=== PATIENT | male | born 2000 | race Caucasian/White ===

== ENCOUNTER 2021-12-19 15:44 | Observation (INO) ==
[2021-12-19] MEDS ORDERED: ACETAMINOPHEN 1000 MG/100 ML IV IV PRN (15:59)
[2021-12-19] MEDS ORDERED: HYDROmorphone INJ 0.5 MG/0.5 ML SYR IV PRN (15:59)
[2021-12-19] MEDS ORDERED: MoRPHine SULFATE 4 MG/ML 1 ML CARP\\VIAL IV PRN (15:59)
--- NOTE | 2021-12-19 17:18 | History & Physical Report ---
Date of Service December 19, 2021 Assessment & Plan (1) Mastoiditis of left side: Plan: Patient is a 21 year old male presenting with left ear and mastoid tenderness to palpation and hearing loss concerning of mastoiditis after failing a 21 day course of PO Augmentin. CT scan on 11/15 showed evidence of otitis media and mastoiditis. Due to failed course of antibiotics and worsening symptoms patient was admitted and will be started on empiric 3.375 gm (15 ml) Piperacillin/Tazobactam * Hold Vancomycin until MRSA swab results * Obtain CBC, procalcitonin, ESR, CRP * CT facial bones to visualize possible mastoiditis or osteomyelitis, pending results * Consider ENT/OMF consult if CT facial bones is positive for mastoiditis or osteomyelitis * Acetaminophen 1000mg q8h PRN for pain control. Currently 08/08 pain * Last food intake at 1:30pm today, last water intake around 3-4pm (2) Depression: Plan: follow up with PCP outpatient, was recently started on prozac 10mg (3) Tremor of both hands: Plan: follow up with PCP outpatient, consider neurology outpatient Admission and Anticipated Discharge Date Admission Date: December 19, 2021 History of Present Illness Chief Complaint: direct admission by PCP for worsening mastoiditis Primary Care Provider: Dr. Alli Juan Kye Ambriz is a 21 year old male with a PMH of depression and multiple episodes of childhood otitis media presenting with hearing loss and TTP over L mastoid area after completing a 21 day course of PO Augmentin outpatient for mastoiditis. He was referred as a direct admission by PCP Dr. Alli Juan from [facility]. Symptoms of infection started on 10/26/21 with sinus congestion and throat pain with negative strep test treated with OCT NyQuil and Mucinex. By 11/01/21 he experienced yellow and slighly bloody discharge from his left ear, pressure in his ear and left sided headache, and complete deafness in his left ear for 2 weeks. He was started on hydrocortisone/neomycin/polymyxin topical but had a slight worsening of symptoms but resolution of purulent drainage. On 12/08 he was prescribed a week of Augmentin PO 875 mg-125 mg for ear pain and pressure, which was extended and additional 2 weeks for a total of 21 days of PO Augmentin. He had 50-70% improvement in hearing with antibiotics and mostly reduced pressure in left ear and head, with some remaining mastoid and jaw tenderness. CT temporal bone on 12/15 showed otitis media and mastoiditis. He also had mild Covid-19 2-3 weeks ago with lingering fatigue but no cough or SOB. He has currently been off PO antibiotics for 2 weeks and has 1/10 pain around his ear, increased pressure sensation, 50% hearing loss, and increased pain on palpation around his left ear, mastoid and angle of the mandible. He is not febrile. He has not had any recent dental procedures or cleaning in the last 5 months, last dental visit in Jun 2021. He is not a swimmer and has not been in a pool in months. 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 This has not been verified by his PCP. Allergies Allergy/AdvReac Type Severity Reaction Status Date / Time No Known Allergies Allergy Unverified 09/13/13 16:28 Home Medications Medication Instructions Recorded Confirmed Type fluoxetine 10 mg capsule 10 mg 12/19/21 History Past Med/Surg History Surgical History (Updated 12/19/21 @ 18:22 by Mehnaz Pantoja) [place] teeth removed at 16 y/o Family History (Updated 12/19/21 @ 17:22 by Parminder Torres MD) Other Cancer Social History (Updated 12/19/21 @ 17:26 by Parminder Torres MD) Smoking Status: Current every day smoker Tobacco Type: E-cigarettes / Vaping Do You Dip or Chew Tobacco: No; Hx Alcohol Use: Yes Alcohol type: hard liquor Alcohol type Comment: Up until 06/2021, patient reports drinking "half a handle a day"; Alcohol Intake Frequency: 2-3 x/Week Alcohol Intake Frequency Comment: Now only on weekends; 4- 6 drinks Hx Substance Use: Yes Prescribed Medications: Marijuana Last Used Substance: Days (ago) Substance Use Type Other:: Marijuana: Shrooms: several months ago Preferred Language: Libyan Office Communication Professor Required: No Beliefs That Will Affect Care: None Current Living Situation: Other Current Living Situation Comment: rents with 2 roomates current occupational status: student current occupation: just graduated Feels Safe at Home: Yes Immunizations: childhood immunizations up to date Review of Systems Constitutional: afebrile, slightly fatigued from recent covid illness Ear, Nose, Mouth, Throat: no sore throat, slight nasal congestion, 1/10 pain around left ear, pressure sensation in left ear Respiratory: no cough, no SOB Cardiovascular: Additional Comments: no chest pain or palpitations Gastrointestinal: no GI concerns Neurologic: no headaches Allergy / Immunological: seasonal allergies - rhinorrhea Physical Exam Constitutional: appears stated age, comfortable in no acute distress ENMT: TM bilaterally with good cone of light and without effusion, bulging or perforation, no erythema in outer ear or canal. Pain to palpation on left mastoid process, preauricular area, styloid process, and angle of the mandible. Robin test localizes to left ear, Rinne test: left ear bone conduction greater than air conduction, right ear air conduction is greater than bone conduction. No tonsillar swelling or cobblestoning. Respiratory: normal respiratory effort, lungs clear to auscultation bilaterall y Cardiovascular: RRR no MRG Neurologic: CN 2-12 intact, no focal deficits Code Status & VTE Plan VTE Prophylaxis Plan VTE Prophylaxis will be ordered: No Supervising Physician Co-Signing Physician Notes I personally examined the patient and verified all loja points of history and exam, discussed case, and agree with decision making with Caitlyn Pantoja MS4 ear, jaw pain. gets somewhat better on long courses PO abx then worsens again. after failing most recent outpt Rx, direct admitted for further care vitals noted nad heent nc at mmm breathing unlabored no accessory muscles good effort skin no rashes no pallor or icterus mastoiditis - MRSA nares, vanco if (+), zosyn otherwise as well. image ear/mastoid and (since radiating pain) jaw. anticipate need for ENT vs maxilofacial depending on results of imaging otherwise as above
[2021-12-19 17:36] LABS: Basophils # (auto) 0.04 K/uL (0-0.2); Basophils % (auto) 0.6 %; Eosinophils # (auto) 0.14 K/uL (0-0.5); Hematocrit (blood only) 42.3 % (42-52); Hemoglobin 14.9 g/dL (14.0-18.0); Immature Granulocytes # (auto) 0.02 K/uL (0.00-0.02); Immature Granulocytes % (auto) 0.3 %; Lymphocytes # (auto) 1.87 K/uL (1.2-3.4); Lymphocytes % (auto) 27.3 %; Mean Corpuscular Hemoglobin 31.2 pg (25-34); Mean Corpuscular Hgb Conc 35.2 g/dL (32-36); Mean Corpuscular Volume 88.5 fL (80-100); Mean Platelet Volume 9.8 fL (7.4-10.4); Monocytes # (auto) 0.84 K/uL (0.11-0.59); Monocytes % (auto) 12.3 %; Neutrophils # (auto) 3.93 K/uL (1.4-6.5); Neutrophils % (auto) 57.5 %; Platelet Count 331 K/uL (130-400); RDW Coefficient of Variation 13.2 % (11.5-14.5); RDW Standard Deviation 42.7 fL (36.4-46.3); Red Blood Count 4.78 M/uL (4.7-6.1); White Blood Count 6.84 K/uL (4.8-10.8)
[2021-12-19] MEDS: Patient's HEIGHT &/or WEIGHT Needed SCH ×2 (17:38→19:27)
[2021-12-19] MEDS ORDERED: PIPERACILL/TAZOBAC CONSULT ACTIVE PRN (18:10)
[2021-12-19] MEDS ORDERED: Nursing to Pharmacy Communication SCH (18:15)
[2021-12-19 18:16] LABS: Alanine Aminotransferase 96 U/L (7-52); Albumin Globulin Ratio 1.4 (0.9-2); Alkaline Phosphatase 74 U/L (34-104); Anion Gap 9 (3-11); Aspartate Aminotransferase 39 U/L (13-39); BUN Creatinine Ratio 15.2 (10-20); Bilirubin,Total 0.7 mg/dl (0.2-1.0); Blood Urea Nitrogen 15 mg/dl (6-23); C Reactive Protein < 0.50 mg/dl (0-0.5); Calcium 9.9 mg/dl (8.5-10.1); Carbon Dioxide 27 mmol/L (21-32); Chloride 101 mmol/L (98-107); Creatinine Clr Calc Pharmacy 139.9 ml/min; Est GFR (African American) 124.8 ml/min; Est GFR (Non-African American) 107.7 ml/min; Globulin 3.7 gm/dl (2.5-4.0); Glucose 83 mg/dl (70-99(Fasting)); Potassium 3.9 mmol/L (3.5-5.1); Sodium 137 mmol/L (136-145); Total Protein 8.7 gm/dl (6.0-8.3)
--- NOTE | 2021-12-19 18:18 | Billing Data ---
Date of Service December 19, 2021 Coding Level of Care Code 97257 Subseq Obs Care Lvl 3
[2021-12-19] MEDS ORDERED: OPTIRAY 320 100ml IV ONE (19:55)
[2021-12-19] MEDS ORDERED: PIPERACILLIN/TAZOBACTAM 3.375 GM in DEXTROSE 5% 100 ML IV ONE (20:00)
--- NOTE | 2021-12-19 20:27 | CT Scan Report ---
FACIAL BONE CT WITH CONTRAST CLINICAL HISTORY: recent dx L mastoiditis; recurrent pain, +in L jaw COMPARISON STUDY: Temporal bone CT November 15, 2021. TECHNIQUE: Facial bone CT was performed following intravenous injection of 94 cc of Optiray 320 IV. S agittal and coronal reconstructions were viewed. Automated exposure control was utilized for the stud y. A dose lowering technique was utilized adhering to the principles of ALARA. FINDINGS: Visualized portions of the intracranial contents are unremarkable by CT. Trace fluid within the right mastoid air cells is noted. The left mastoid air cells are nearly completely opacified. Ae ration has slightly improved since prior CT. There is also extensive fluid within the left middle ear , adjacent to the ossicles. No bony destruction is identified by CT. There is no fluid collection adj acent to the left external auditory canal to suggest an abscess. Findings are similar to prior CT of November 15, 2021. Major vasculature of the upper neck is patent. Orbits are unremarkable. Minimal mucos al thickening of the left maxillary sinus is present. IMPRESSION: Near-complete opacification of the left mastoid air cells with fluid within the left mid dle ear. Minimal improvement in left mastoid aeration since prior scan. The findings represent persis tent or recurrent left otomastoiditis. No bony destruction by CT. ACT 112: Negative or not required by law. Electronically signed by: Brett Ferro M.D. 12/19/2021 8:25 PM
[2021-12-19] MEDS ORDERED: SODIUM CHLORIDE 0.9% 500 ML IV SCH (20:45)
[2021-12-20] MEDS: PIPERACILLIN/TAZOBACTAM 3.375 GM in DEXTROSE 5% 100 ML IV SCH ×3 (01:18→17:34)
[2021-12-20 07:45] LABS: Basophils # (auto) 0.03 K/uL (0-0.2); Basophils % (auto) 0.5 %; Eosinophils # (auto) 0.17 K/uL (0-0.5); Hemoglobin 15.2 g/dL (14.0-18.0); Immature Granulocytes # (auto) 0.01 K/uL (0.00-0.02); Immature Granulocytes % (auto) 0.2 %; Lymphocytes # (auto) 1.88 K/uL (1.2-3.4); Lymphocytes % (auto) 33.7 %; Mean Corpuscular Hemoglobin 31.1 pg (25-34); Mean Corpuscular Hgb Conc 35.3 g/dL (32-36); Mean Corpuscular Volume 88.1 fL (80-100); Mean Platelet Volume 9.7 fL (7.4-10.4); Monocytes # (auto) 0.71 K/uL (0.11-0.59); Monocytes % (auto) 12.7 %; Neutrophils # (auto) 2.78 K/uL (1.4-6.5); Neutrophils % (auto) 49.9 %; Platelet Count 277 K/uL (130-400); RDW Standard Deviation 41.9 fL (36.4-46.3); Red Blood Count 4.88 M/uL (4.7-6.1); White Blood Count 5.58 K/uL (4.8-10.8)
[2021-12-20 08:07] LABS: Albumin Globulin Ratio 1.3 (0.9-2); Albumin Level 4.5 gm/dl (3.4-5.0); BUN Creatinine Ratio 10.8 (10-20); Bilirubin,Total 1.1 mg/dl (0.2-1.0); Calcium 9.7 mg/dl (8.5-10.1); Creatinine Clr Calc Pharmacy 124.8 ml/min; Est GFR (African American) 108.7 ml/min; Est GFR (Non-African American) 93.8 ml/min; Globulin 3.4 gm/dl (2.5-4.0); Potassium 4.3 mmol/L (3.5-5.1); Total Protein 7.9 gm/dl (6.0-8.3)
--- NOTE | 2021-12-20 09:25 | Hospitalist Progress Note ---
Date of Service December 20, 2021 Assessment & Plan (1) Mastoiditis of left side: Plan: Patient is a 21 year old male presenting with left ear and mastoid tenderness to palpation and hearing loss concerning of mastoiditis after failing a 21 day course of PO Augmentin. CT scan on 11/15 showed evidence of otitis media and mastoiditis. Mastoiditis Due to failed course of antibiotics and worsening symptoms patient was admitted and is on day 2 of Piperacillin/Tazobactam * MRSA swab results negative, no need to switch to Vancomycin at this time * CT facial bones: consistent with persistent otomastoiditis, similar to CT from 11/15. No osteonecrosis or bony destruction noted. No mandibular/TMJ involvement noted. * Appreciate ENT consultation for mastoiditis * Acetaminophen 1000mg q8h PRN for pain control. Currently 08/08 pain * CBC within normal limits except for slight absolute monocytosis (0.84 on 12/19, 0.71 on 12/20). * ESR 16, CRP <0.5, procalcitonin <0.05 * NPO until ENT consultation in case of surgical management DVT prophylaxis: ambulate ad mayte, potential for ENT surgery FEN/GI: NPO Code Status: Full Code (2) Transaminitis: Plan: ALT slightly elevated at 96, up from 88 yesterday. AST 39, 37 yesterday. Total bilirubin 1.1, 0.7 yesterday. Possible mild viral hepatitis due to recent covid infection in combination with mild absolute monocytosis. DDx extrahepatic cholestasis, minor fatty liver though unlikely without additional symptoms. Trend CMP tomorrow and consider liver US or outpatient follow-up with GI if ALT still elevated (3) Diarrhea: Plan: Watery diarrhea likely due to initiation of antibiotics yesterday. Previous 21 day course of Augmentin ending 2 weeks prior to admission. No other risk factors for c. diff. Will watch for increased frequency or symptoms concerning for c. diff. (4) Depression: Plan: follow up with PCP outpatient, was recently started on prozac 10mg (5) Tremor of both hands: Plan: follow up with PCP outpatient, consider neurology outpatient Admission and Anticipated Discharge Date Admission Date: December 19, 2021 Supervising Physician Co-Signing Physician Notes I personally examined the patient and verified all loja points of history and exam, discussed case, and agree with decision making with Caitlyn Pantoja MS4 sleeping both times i saw him today. awaiting ENT input - case d/w ENT by R2 physician Dr Torres vitals noted nad breathing unlabored no pallor or icterus mastoiditis / otitis - recurrent/refractory. MRSA nares negative. continue zosyn. await ENT input. otherwise as above Subjective No acute events overnight. Today he feels the same as yesterday, with same 1/10 pain and 50% hearing loss in left ear. No headache, chest pain, SOB, fever or myalgias today. He does note he had 2 watery bowel movements since yesterday without blood. Review of Systems Constitutional: no fever or myalgias Ear, Nose, Mouth, Throat: L ear: 50% subjective hearing loss compared to right ear, 1/10 pain, pressure sensation Respiratory: no cough or SOB Cardiovascular: Additional Comments: no chest pain or palpitations Gastrointestinal: 2 episodes of watery diarrhea since yesterday, no blood. No nausea or vomiting Genitourinary: no dysuria Neurologic: no headache, no issues with balance or gait when walking, no vertigo Physical Exam Constitutional: comfortable, in no acute distress ENMT: pain to palpation in LEFT mastoid, styloid process (slightly decreased since yesterday), pre-auricular area, and angle of the mandible. No swelling of cobblestoning of the throat Neck: No lymphadenopathy appreciated Respiratory: normal respiratory effort, clear to auscultation bilaterally Cardiovascular: RRR no MRG. No lower extremity edema Gastrointestinal (Abdomen): active bowel sounds, no tenderness to palpation Results & Data Results & Data ([facility]) Vital Signs (Past 12 Hours) Vital Signs Temp Pulse Resp BP Pulse Ox 12/20/21 07:43 36.5 C 64 18 149/78 H 97 12/19/21 22:37 36.7 C 75 16 141/83 H 97 Laboratory Results Laboratory Results - last 48 hr 12/19/21 12/19/21 12/19/21 17:05 17:05 17:05 WBC 6.84 RBC 4.78 Hgb 14.9 Hct 42.3 MCV 88.5 MCH 31.2 MCHC 35.2 RDW Std Deviation 42.7 RDW Coeff of Rosalio 13.2 Plt Count 331 MPV 9.8 Immature Gran % (Auto) 0.3 Neut % (Auto) 57.5 Lymph % (Auto) 27.3 [place] % (Auto) 12.3 Eos % (Auto) 2.0 Baso % (Auto) 0.6 Neut # (Auto) 3.93 Lymph # (Auto) 1.87 [place] # (Auto) 0.84 H Eos # (Auto) 0.14 Baso # (Auto) 0.04 Immature Gran # (Auto) 0.02 ESR 16 H Sodium 137 Potassium 3.9 Chloride 101 Carbon Dioxide 27 Anion Gap 9 BUN 15 Creatinine 0.99 Est Cr Clr Drug Dosing 139.9 Est GFR ( Amer) 124.8 Est GFR (Non-Af Amer) 107.7 BUN/Creatinine Ratio 15.2 Glucose 83 Calcium 9.9 Total Bilirubin 0.7 AST 39 ALT 96 H Alkaline Phosphatase 74 C-Reactive Protein < 0.50 Total Protein 8.7 H Albumin 5.0 Globulin 3.7 Albumin/Globulin Ratio 1.4 Procalcitonin Nasal Screen MRSA (PCR) 12/19/21 12/19/21 12/20/21 17:05 Unknown 07:26 WBC 5.58 RBC 4.88 Hgb 15.2 Hct 43.0 MCV 88.1 MCH 31.1 MCHC 35.3 RDW Std Deviation 41.9 RDW Coeff of Rosalio 13.0 Plt Count 277 MPV 9.7 Immature Gran % (Auto) 0.2 Neut % (Auto) 49.9 Lymph % (Auto) 33.7 [place] % (Auto) 12.7 Eos % (Auto) 3.0 Baso % (Auto) 0.5 Neut # (Auto) 2.78 Lymph # (Auto) 1.88 [place] # (Auto) 0.71 H Eos # (Auto) 0.17 Baso # (Auto) 0.03 Immature Gran # (Auto) 0.01 ESR Sodium Potassium Chloride Carbon Dioxide Anion Gap BUN Creatinine Est Cr Clr Drug Dosing Est GFR ( Amer) Est GFR (Non-Af Amer) BUN/Creatinine Ratio Glucose Calcium Total Bilirubin AST ALT Alkaline Phosphatase C-Reactive Protein Total Protein Albumin Globulin Albumin/Globulin Ratio Procalcitonin < 0.05 Nasal Screen MRSA (PCR) Negative 12/20/21 07:26 WBC RBC Hgb Hct MCV MCH MCHC RDW Std Deviation RDW Coeff of Rosalio Plt Count MPV Immature Gran % (Auto) Neut % (Auto) Lymph % (Auto) [place] % (Auto) Eos % (Auto) Baso % (Auto) Neut # (Auto) Lymph # (Auto) [place] # (Auto) Eos # (Auto) Baso # (Auto) Immature Gran # (Auto) ESR Sodium 138 Potassium 4.3 Chloride 103 Carbon Dioxide 29 Anion Gap 6 BUN 12 Creatinine 1.11 Est Cr Clr Drug Dosing 124.8 Est GFR ( Amer) 108.7 Est GFR (Non-Af Amer) 93.8 BUN/Creatinine Ratio 10.8 Glucose 88 Calcium 9.7 Total Bilirubin 1.1 H D AST 37 ALT 88 H Alkaline Phosphatase 66 C-Reactive Protein Total Protein 7.9 Albumin 4.5 Globulin 3.4 Albumin/Globulin Ratio 1.3 Procalcitonin Nasal Screen MRSA (PCR) Diagnostic Findings FACIAL BONE CT WITH CONTRAST CLINICAL HISTORY: recent dx L mastoiditis; recurrent pain, +in L jaw COMPARISON STUDY: Temporal bone CT November 15, 2021. TECHNIQUE: Facial bone CT was performed following intravenous injection of 94 cc of Optiray 320 IV. Sagittal and coronal reconstructions were viewed. Automated exposure control was utilized for the study. A dose lowering technique was utilized adhering to the principles of ALARA. FINDINGS: Visualized portions of the intracranial contents are unremarkable by CT. Trace fluid within the right mastoid air cells is noted. The left mastoid air cells are nearly completely opacified. Aeration has slightly improved since prior CT. There is also extensive fluid within the left middle ear, adjacent to the ossicles. No bony destruction is identified by CT. There is no fluid collection adjacent to the left external auditory canal to suggest an abscess. Findings are similar to prior CT of November 15, 2021. Major vasculature of the upper neck is patent. Orbits are unremarkable. Minimal mucosal thickening of the left maxillary sinus is present. IMPRESSION: Near-complete opacification of the left mastoid air cells with fluid within the left middle ear. Minimal improvement in left mastoid aeration since prior scan. The findings represent persistent or recurrent left otomastoiditis. No bony destruction by CT.
--- NOTE | 2021-12-20 21:49 | ENT Consultation ---
Date of Consultation December 20, 2021 Assessment & Plan (1) Serous otitis media: My Exam Findings and My review of the Temporal Bone CT - shows a HYPOpneumatized LEFT Mastoid WITHOUT any bone destruction. The patient is AFEBRILE and NORMAL White Blood Count - WITHOUT any External Ear swelling or cellulitis and NO mastoid tenderness. Tuning forks indicate INTACT Sensorineural Hearing in the LEFT ear and patient admits to subjective NORMAL Right ear hearing. Given his History of a recent past acute URI with LEFT Ear infection - the patient responded as hoped to his Outpatient community medical treatments and he currently has a resolving SEROUS Otitis Media -WITHOUT Infection - with Eustachian Tube Dysfunction. The Hypopneumatized mastoid is indicative of past middle ear function as a child and this ear takes a little longer to Clear a Middle ear / Mastoid Effusion. Studies show that 50% of such ears will clear in about six (6) weeks and 90% clear in about twelve (12) weeks WITHOUT any additional therapy. My recommendations would be: 1) to NOT give any additional antibiotics either IV or PO. 2) Have the patient continue as an outpatient with FLONASE nasal steroid spray for six (6) weeks Daily for improved eustachian tube function. 3) MUCINEX or GAUIFENISEN 600 mg BID for three weeks as a mucolytic agent to help clear the Serous Effusion. 4) Use of CLARITIN-D for 2 - 3 weeks as an antihistamine and decongestant for improved eustachian tube function. 5) An AUDIOGRAM to assess and document the actual state of his hearing rather than rely on subjective quantification, and follow-up on the findings. This is NOT acute mastoiditis. Present on Admission?: Yes (2) Eustachian tube dysfunction: My Exam Findings and My review of the Temporal Bone CT - shows a HYPOpneumatized LEFT Mastoid WITHOUT any bone destruction. The patient is AFEBRILE and NORMAL White Blood Count - WITHOUT any External Ear swelling or cellulitis and NO mastoid tenderness. Tuning forks indicate INTACT Sen sorineural Hearing in the LEFT ear and patient admits to subjective NORMAL Right ear hearing. Given his History of a recent past acute URI with LEFT Ear infection - the patient responded as hoped to his Outpatient community medical treatments and he currently has a resolving SEROUS Otitis Media -WITHOUT Infection - with Eustachian Tube Dysfunction. The Hypopneumatized mastoid is indicative of past middle ear function as a child and this ear takes a little longer to Clear a Middle ear / Mastoid Effusion. Studies show that 50% of such ears will clear in about six (6) weeks and 90% clear in about twelve (12) weeks WITHOUT any additional therapy. My recommendations would be: 1) to NOT give any additional antibiotics either IV or PO. 2) Have the patient continue as an outpatient with FLONASE nasal steroid spray for six (6) weeks Daily for improved eustachian tube function. 3) MUCINEX or GAUIFENISEN 600 mg BID for three weeks as a mucolytic agent to help clear the Serous Effusion. 4) Use of CLARITIN-D for 2 - 3 weeks as an antihistamine and decongestant for improved eustachian tube function. 5) An AUDIOGRAM to assess and document the actual state of his hearing rather than rely on subjective quantification, and follow-up on the findings. This is NOT acute Mastoiditis and does not require any surgical intervention. Present on Admission?: Yes History of Present Illness Reason for Consultation: Rule out Acute Mastoiditis Requesting Physician: Parminder Torres MD Attending Physician: Parminder Ji DO History of Present Illness Kye Ambriz is a 21 year old male with an onset of LEFT Ear - Middle ear infection / Otalgia that started in OCTOBER 2021. He went on a trip to [place] for spring and developed Symptoms of infection started on 10/26/21 with sinus congestion and throat pain with negative strep test treated with OCT NyQuil and Mucinex. By 11/01/21 (OCTOBER) he experienced yellow discharge from his LEFT ear, pressure in his LEFT ear and LEFT sided headache, and noted difficulty hearing in his LEFT ear for 2 weeks. He had a TEMPORAL BONE CT SCAN done 15 NOVEMBER 2021 which showed fluid in the LEFT middle ear space and in the hypo- pneumatized LEFT mastoid. There was NO bone destruction. He was started on TOPICAL hydrocortisone/neomycin/polymyxin EAR DROPS then in OCTOBER - but had a slight worsening of symptoms but resolution of purulent drainage. On 08 NOVEMBER 2021 - he was prescribed a week of Augmentin PO 875 mg-125 mg for ear pain and pressure, which noted SOME IMPROVEMENT and the AUGMENTIN was extended an additional 2 weeks for a total of 21 days of PO AUGMENTIN. Patient states that he improvement in his LEFT ear symptoms and his LEFT ear hearing was restored. With antibiotics and mostly REDUCED pressure in LEFT ear and head, he was improved, with some remaining MILD mastoid and jaw tenderness. He was OFF any antibiotics and in this past week - noting his LEFT hearing to start to deminish and feel a "Fullness" of the LEFT ear. He was NOT having the pain or discomfort of the LEFT ear as he had though in OCTOBER 2021. Around this time he notes he also had mild Covid-19 2-3 weeks ago with lingering fatigue but no cough or SOB. He was currently been off PO antibiotics for 2 weeks and has 1/10 pain around his ear, but started to note an increased pressure sensation in the LEFT ear, and he estimated he had about 50% hearing loss, (HOWEVER - the HEARING LOSS ESTIMATES are patient subjective - NO AUDIOGRAM was done.) In this scenario - the patient returned to PRIMARY CARE on 19 DEC 2021 for a Follow-Up visit. He did NOT have any Fever, did NOT have any LEFT Ear Pain and did NOT have and tenderness of the Mastoid - but the Primary Care Exam of the LEFT ear, and his report of decreased LEFT ear hearing - the patient was made a Direct Admit by PCP Dr. Alli Juan from [facility]. A TEMPORAL BONE CT Scan was obtained 19 DEC 2021 as part of his Direct Admission. Patient is a recent graduate of [employer] (NOVEMBER 2021). Patient has a past history of many ear infections during childhood - but NO ear surgeries, NO tympanostomy tubes. Patient has history of Depression - on Prozac. Allergies Allergy/AdvReac Type Severity Reaction Status Date / Time No Known Allergies Allergy Unverified 09/13/13 16:28 Home Medications Medication Instructions Recorded Confirmed Type fluoxetine 10 mg capsule 10 mg 12/19/21 History Patient History Surgical History [place] teeth removed at 16 y/o Family History Other Cancer Social History Smoking Status: Current every day smoker Tobacco Type: E-cigarettes / Vaping Do You Dip or Chew Tobacco: No; Hx Alcohol Use: Yes Alcohol type: hard liquor Alcohol type Comment: Up until 06/2021, patient reports drinking "half a handle a day"; Alcohol Intake Frequency: 2-3 x/Week Alcohol Intake Frequency Comment: Now only on weekends; 4- 6 drinks Hx Substance Use: Yes Prescribed Medications: Marijuana Last Used Substance: Days (ago) Substance Use Type Other:: Marijuana: Shrooms: several months ago Preferred Language: Macedonian Nonprofit Manager Required: No Beliefs That Will Affect Care: None Current Living Situation: Other Current Living Situation Comment: rents with 2 roomates current occupational status: student current occupation: just graduated Feels Safe at Home: Yes Assistive Devices: None Review of Systems Review of Systems: Unremarkable. Constitutional: as per Subjective / HPI Recent College Graduate. Use of Alcohol, marijuana, hallucinogenic mushrooms as noted above. Eyes: no diplopia, no decreased night vision, no loss of peripheral vision and no problem reported Ear, Nose, Mouth, Throat: no ear pain, no ear discharge, no ear trauma, no tinnitus, no hyperacusis, no dizziness, no nasal discharge, no sinus pain/press ure, no sore throat and no dysphagia Respiratory: no dyspnea on exertion and no hemoptysis Cardiovascular: no palpitations and no syncope Gastrointestinal: no nausea, no constipation and no problem reported Genitourinary: no problem reported Musculoskeletal: no problem reported Integumentary: no problem reported Neurologic: no problem reported Psychiatric: as per Subjective / HPI and + depression Physical Exam Constitutional: WD/WN, vitals as above Eyes: PERRL, conjunctivae normal, anicteric sclerae ENMT: external ear and nose normal, oropharynx normal NO facial weakness. NO facial tenderness. NO mastoid tenderness on palpation. EAR: NORMAL External ear. CLEAN External Auditory Canals. BOTH tympanic membranes intact, NO retraction, NO bulging, NO erythema. NORMAL Light reflex bilaterally. NO signs of middle ear effusion. Tuning Fork Test - Rinne Normal. Robin Lateralizes to the LEFT. NOSE: Clear & Patent airways. NO polyps, NO mucopus. MOUTH: Health Dentition. Floor of mouth Clear. Tongue NORMAL. Uvulat Midline. Soft palate NORMAL. Tonsils +1 in Size - symmetrical NORMAL OROPHARYNX - CLEAR - NO lesions. Neck: trachea midline, no thyromegaly NO adenopathy. NO mastoid tenderness. NO swelling. Respiratory: normal respiratory effort, lungs clear to auscultation Cardiovascular: RRR, no murmur, no edema Results & Data ([facility]) Vital Signs (Past 12 Hours) Vital Signs Temp Pulse Resp BP Pulse Ox 12/20/21 15:04 36.7 C 76 18 123/74 95 Laboratory Results WBC = 6.8 on admission... 5.6 today and NO shift. Hgb / Hct = 15.2 / 43% Diagnostic Findings TEMPORAL BONE CT SCAN: (19 DEC 2021) REPORT: "FINDINGS: Visualized portions of the intracranial contents are unremarkable by CT. Trace fluid within the right mastoid air cells is noted. The left mastoid air cells are nearly completely opacified. Aeration has slightly improved since prior CT. There is also extensive fluid within the left middle ear, adjacent to the ossicles. No bony destruction is identified by CT. There is no fluid collection adjacent to the left external auditory canal to suggest an abscess. Findings are similar to prior CT of November 15, 2021. Major vasculature of the upper neck is patent. Orbits are unremarkable. Minimal mucosal thickening of the left maxillary sinus is present. IMPRESSION: Near-complete opacification of the left mastoid air cells with fluid within the left middle ear. Minimal improvement in left mastoid aeration since prior scan. The findings represent persistent or recurrent left otomastoiditis. No bony destruction by CT." Medications Administered IV ZOSYN (Piperacillin & Tazobactam).
--- NOTE | 2021-12-21 06:32 | Discharge Summary ---
Date of Service December 21, 2021 Admission HPI Per Admitting Provider Kye Ambriz is a 21 year old male with a PMH of depression and multiple episodes of childhood otitis media presenting with hearing loss and TTP over L mastoid area after completing a 21 day course of PO Augmentin outpatient for mastoiditis. He was referred as a direct admission by PCP Dr. Alli Juan from [facility]. Symptoms of infection started on 10/26/21 with sinus congestion and throat pain with negative strep test treated with OCT NyQuil and Mucinex. By 11/01/21 he experienced yellow and slighly bloody discharge from his left ear, pressure in his ear and left sided headache, and complete deafness in his left ear for 2 weeks. He was started on hydrocortisone/neomycin/polymyxin topical but had a slight worsening of symptoms but resolution of purulent drainage. On 12/08 he was prescribed a week of Augmentin PO 875 mg-125 mg for ear pain and pressure, which was extended and additional 2 weeks for a total of 21 days of PO Augmentin. He had 50-70% improvement in hearing with antibiotics and mostly re duced pressure in left ear and head, with some remaining mastoid and jaw tenderness. CT temporal bone on 12/15 showed otitis media and mastoiditis. He also had mild Covid-19 2-3 weeks ago with lingering fatigue but no cough or SOB. He has currently been off PO antibiotics for 2 weeks and has 1/10 pain around his ear, increased pressure sensation, 50% hearing loss, and increased pain on palpation around his left ear, mastoid and angle of the mandible. He is not febrile. He has not had any recent dental procedures or cleaning in the last 5 months, last dental visit in Jun 2021. He is not a swimmer and has not been in a pool in months. 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 This has not been verified by his PCP. Admission Exam Per Admitting Provider Constitutional: appears stated age, comfortable in no acute distress ENMT: TM bilaterally with good cone of light and without effusion, bulging or perforation, no erythema in outer ear or canal. Pain to palpation on left mastoid process, preauricular area, styloid process, and angle of the mandible. Robin test localizes to left ear, Rinne test: left ear bone conduction greater than air conduction, right ear air conduction is greater than bone conduction. No tonsillar swelling or cobblestoning. Respiratory: normal respiratory effort, lungs clear to auscultation bilaterally Cardiovascular: RRR no MRG Neurologic: CN 2-12 intact, no focal deficits Principal Diagnosis hypopneumatized mastoid resolved L serous otitis media Discharge Exam General: 21-year old male who is alert, oriented, and appears in no acute distress. HEENT: NCAT. - Eyes - Sclera are white, anicteric, and without injection. - Mouth - MMM - Neck - supple, no appreciable JVD - Ears - external ears normal, canals without e/o swelling or erythema, TMs demonstrating white reflex b/l without bulging or inflammation Cardiac: Normal rate and regular rhythm; S1 and S2 present with no murmurs, rubs, or gallops. Pulmonary: Good respiratory effort with symmetric expansion of the chest. No use of accessory muscles. Lungs were clear to auscultation bilaterally with no crackles or wheezes. Abdominal: Normoactive bowel sounds. Abdomen was soft, nondistended, and non- tender to palpation. Discharge Data Allergies Allergy/AdvReac Type Severity Reaction Status Date / Time No Known Allergies Allergy Unverified 09/13/13 16:28 Consultations 12/20/21 06:35 Consult Otolaryngology (Head and Neck) Routine "My Exam Findings and My review of the Temporal Bone CT - shows a HYPOpneumatized LEFT Mastoid WITHOUT any bone destruction. The patient is AFEBRILE and NORMAL White Blood Count - WITHOUT any External Ear swelling or cellulitis and NO mastoid tenderness. Tuning forks indicate INTACT Sensorineural Hearing in the LEFT ear and patient admits to subjective NORMAL Right ear hearing. Given his History of a recent past acute URI with LEFT Ear infection - the patient responded as hoped to his Outpatient community medical treatments and he currently has a resolving SEROUS Otitis Media -WITHOUT Infection - with Eustachian Tube Dysfunction. The Hypopneumatized mastoid is indicative of past middle ear function as a child and this ear takes a little longer to Clear a Middle ear / Mastoid Effusion. Studies show that 50% of such ears will clear in about six (6) weeks and 90% clear in about twelve (12) weeks WITHOUT any additional therapy. My recommendations would be: 1) to NOT give any additional antibiotics either IV or PO. 2) Have the patient continue as an outpatient with FLONASE nasal steroid spray for six (6) weeks Daily for improved eustachian tube function. 3) MUCINEX or GAUIFENISEN 600 mg BID for three weeks as a mucolytic agent to help clear the Serous Effusion. 4) Use of CLARITIN-D for 2 - 3 weeks as an antihistamine and decongestant for improved eustachian tube function. 5) An AUDIOGRAM to assess and document the actual state of his hearing rather than rely on subjective quantification, and follow-up on the findings. This is NOT acute mastoiditis." -- excerpt from consult by Zoltan Arora MD, ENT Ordered Studies 12/19/21 17:01 CT facial bones w con Urgent "IMPRESSION: Near-complete opacification of the left mastoid air cells with fluid within the left middle ear. Minimal improvement in left mastoid aeration since prior scan. The findings represent persistent or recurrent left otomastoiditis. No bony destruction by CT." Hospital Course (1) Serous otitis media: Patient was seen as a direct admission from outpatient [facility] clinic given concerns for persistent mastoiditis. Patient was recently diagnosed with acute otitis externa and acute otitis media in the outpatient setting. He briefly required topical antibiotic/steroid drops, followed by a 21-day course of Augmentin given concerns for mastoiditis clinically, and as initially read on CT temporal bone. He reported initial improvement in symptoms, however had recurrence of a pressure-like feeling in addition to subjective reports of hearing loss. As a result of this, he represented to clinic and was found to have tenderness in the postauricular area, over the mastoid. He was admitted to [facility] directly for further work-up and management. Thankfully, during his stay here, he did not demonstrate any leukocytosis or significant elevations in his inflammatory markers. CT of the face did demonstrate "near complete opacification of the left mastoid air cells with fluid within the left middle ear. Minimal improvement in left mastoid aeration since prior scan. The findings represent persistent or recurrent left otomastoiditis. No bony destruction by CT." Though well-appearing on exam, somewhat unclear symptoms and findings on CT were concerning for recurrent/persistent mastoiditis, and as such was started on parental antibiotic therapyZosyn, which he tolerated well. He was shortly thereafter seen by otolaryngology, who aided in interpretation of his symptoms and scan. Their impression is that his hypopneumatized mastoid on scan is likely from previous ear infections as a child, and that persistent fluid is due to his resolving infection and likely to resolve within the next 6 weeks. He received appropriate outpatient treatment and does not warrant further IV/p.o. antimicrobial therapy. Final recommendation are to utilize Flonase for 6 weeks, Mucinex for 3 weeks, Claritin-D for 2 weeks to promote drainage and clearance of this fluid. Outpatient to-do: - ENT consult attached above for review - Obtain audiogram for objective analysis of hearing - Obtain CMP within 1 week to trend ALT/AST (incidental finding of mild elevation of ALT between 70-96 while here with normal AST, etiology unclear - may represent resolving viral infection in setting of relative monocytosis). Could consider RUQ US if no improvement and further laboratory testing for secondary causes of transaminitis. - Consider further work-up of chronic hand tremors, incidentally noted while here; no obvious lyte abnormalities appreciated during this stay Total Time Total Time Spent Total Time Spent (In Minutes): <30 Discharge Plan Discharge Items Patient Disposition: Home - Self-Care Reason For Visit: MASTOIDITIS Discharge Diagnosis: Hypopneumatized mastoid Resolving serous otitis media Activity: Per Instructions section Non-emergency contact: Primary Care Provider Call non-emergency contact if: your symptoms worsen, your pain is not controlled and your temperature is above 101 Follow-up/Referrals: PCP,NO [Physician] - (Patient has PCP-[facility]. He will make his own hospital f/u within 2 weeks. ) Diet: Regular Addtl Attending Provider Instructions: You were seen in [facility] for evaluation of persistent hearing loss and tenderness behind her left ear following recent ear infection and concerns for mastoiditis. Upon your arrival, you underwent work-up to determine the cause of your symptoms, including repeat CT scan of the head. Thankfully, this did not demonstrate any progression or evidence of new infection within the middle ear or the mastoid. You briefly received IV antibiotics while work-up was ongoing. You were seen by the ENT doctors to help clarify your picture, who did not feel that you had evidence of progressing / new infection. Rather, your symptoms were likely due to "aftermath" of a RESOLVING infection -- your inner ear / mastoid, on imaging, demonstrates changes (likely from ear infections as a child) that likely cause it to take "longer" to clear fluid / drainage. As it is normal to have some fluid following an ear infection, it is not surprising we are still seeing evidence of this on your scan. As such, there is no indication for further antibiotics -- as the infection has resolved. However, we will recommend some medications to help drain this fluid and get you feeling better faster. Upon discharge please note the following medication additions/changes/deletions: Take Mucinex 600 mg twice daily for the next 3 weeks Take Claritin-D once daily for the next 2 to 3 weeks Take Flonase, 2 sprays per nostril, each morning for the next 6 weeks Please follow-up with your primary care physician within 2 weeks to review this visit. At that time, you should have a formal hearing test performed. We will attempt to get this appointment set up for you prior to your departure for [facility] (have fun!). In the interim, if you experience worsening ear pain, fevers, chills, sweats, loss of hearing, shortness of breath, or other worrisome symptoms, please seek medical attention immediately; if your symptoms are severe, please report to the ER. Is a pleasure for caring for you while here, we wish you all the best in your recovery. Pending Studies at Discharge: No Stand-Alone Forms: [facility], Work/School Release, Smoking Cessation Medications and DC Order Prescriptions: New fluticasone propionate [Flonase Allergy Relief] 50 mcg/actuation spray,suspension 2 spray intranasal DAILY Qty: 16 RF: 2 guaifenesin 400 mg tablet 600 mg PO BID 42 Days Qty: 126 RF: 0 loratadine-pseudoephedrine [Claritin-D 24 Hour] 10-240 mg tablet extended release 24 hr 1 tab PO DAILY 21 Days Qty: 21 RF: 0 Continued fluoxetine 10 mg capsule 10 mg RF: 0 Discharge Orders: Discharge Order (Routine); Ordered 12/21/21 Ordered By: Parminder Thakur/Other Patient Handouts: Common Middle Ear Problems Admission Data Admit Date/Time: 12/19/21 15:57 Attending Provider: Parminder Ji Admit Provider: Alli Juan Primary Care Provider: [facility] Other Providers: Zoltan Arora Other Interventions: Discharge Summary Assessment (RN) Last Done: 12/21/21 10:31 Supervising Physician Co-Signing Physician Notes I personally examined the patient and verified all loja points of history and exam, discussed case, and agree with decision making with Dr Torres ENT input noted, appreciated. pt expresses understanding, no residual ques tions. safe/stable for home vitals noted nad breathing unlabored no pallor or icterus concern for mastoiditis / otitis - recurrent/refractory - after ENT input, fortunately just eustacian tube dysfunction. safe/stable for home - see dc instructions otherwise as above Resident Activity Tracking Resident Involvement: Resident Care Provided Care Provided: Adult Hospital Medicine
[2021-12-21 07:04] LABS: Albumin Globulin Ratio 1.4 (0.9-2); Albumin Level 4.7 gm/dl (3.4-5.0); BUN Creatinine Ratio 10.3 (10-20); Bilirubin,Total 0.9 mg/dl (0.2-1.0); Calcium 9.7 mg/dl (8.5-10.1); Creatinine Clr Calc Pharmacy 129.4 ml/min; Est GFR (African American) 113.6 ml/min; Globulin 3.4 gm/dl (2.5-4.0); Potassium 3.8 mmol/L (3.5-5.1); Total Protein 8.1 gm/dl (6.0-8.3)
[2021-12-21 08:00] VITALS: BP 122/71; PULSE 71; TEMP 98.1; O2SAT 97
--- NOTE | 2021-12-21 15:26 | Billing Data ---
Date of Service December 21, 2021 Coding Level of Care Code D/C DAY MANAGEMENT <30 MINS
== END 2021-12-21 10:56 | disposition home or self-care (01) ==
LOC: 3N